=== PATIENT | female | born 1940 | race Caucasian/White ===

== ENCOUNTER 2017-10-18 09:54 | Emergency (ER) | payer MEDICARE, OTHER ==
[2017-10-18] MEDS ORDERED: Aspirin 81 MG Tab.Chew PO ONE (10:02)
--- NOTE | 2017-10-18 10:17 | EDM.PDOC ---
ED HPI GENERAL MEDICAL PROBLEM - General Chief Complaint: Chest Pain Stated Complaint: COUGH AND HEAVY CHEST Time Seen by Provider: 10/18/17 09:54 Source of Information: Reports: Patient History Limitations: Reports: No Limitations - History of Present Illness INITIAL COMMENTS - FREE TEXT/NARRATIVE: 77 years old w f with a H/O hypercholesterolemia, HTN, Typ 2 DM, came to the ed due to chest pressure rated as a 4/10. Pt can walk 4 blocks without having sob, however, the chest pressure is always present for 2 days now. No N/V/D or any other constitutional symptoms. 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 BP 178/86 RR 18 Pulse ox 97% on RA Temp 36.6. Pulse 50. Onset Date: 10/16/17 Onset Time: 07:00 Duration: Day(s): Location: Reports: Chest Quality: Reports: Ache, Dull, Pressure Severity: Moderate Improves with: Reports: Rest Worsens with: Reports: Movement Context: Reports: Other (chest pressure for 2 days 4/10) Chest Pain Score (Numeric/FACES): 4 - Related Data Allergies Allergy/AdvReac Type Severity Reaction Status Date / Time No Known Allergies Allergy Verified 10/18/17 10:12 Home Meds: Home Meds Furosemide 20 mg PO DAILY 06/16/15 [History] Gabapentin 300 mg PO TID 06/16/15 [History] Levothyroxine 75 mcg PO ACBREAKFAST 06/16/15 [History] Simvastatin [Zocor] 10 mg PO BEDTIME 06/16/15 [History] Propylene Glycol/Peg 400 [Systane Liquid Gel Eye Drops] 1 drop EYEBOTH BID 08/10 [History] Amitriptyline [Elavil] 10 mg PO BID 10/18/17 [History] Atenolol 25 mg PO BID 10/18/17 [History] Losartan [Cozaar] 50 mg PO BID 10/18/17 [History] Past Medical History HEENT History: Reports: Cataract, Impaired Vision Cardiovascular History: Reports: High Cholesterol, Hypertension Gastrointestinal History: Reports: Chronic Constipation, Gastritis, GERD, Hemorrhoids, Other (See Below) Other Gastrointestinal History: 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: Reports: Endometriosis, Musculoskeletal History: Reports: Arthritis Neurological History: Reports: Migraines Psychiatric History: Reports: Anxiety, Depression Endocrine/Metabolic History: Reports: Diabetes, Type II, Hypothyroidism Immunologic History: Reports: Other (See Below) Other Immunologic History: SHINGLES Dermatologic History: Reports: Other (See Below) Other Dermatologic History: spot on leg that she is concerned about because it doesn't heel - Infectious Disease History Infectious Disease History: Reports: Chicken Pox, Shingles - Past Surgical History HEENT Surgical History: Reports: Cataract Surgery Social & Family History - Family History HEENT: Reports: Cataract, Glaucoma, Impaired Vision Cardiac: Reports: Bypass, CAD, Heart Failure, High Cholesterol, Hypertension, RI , Pacemaker Respiratory: Reports: None GI: Reports: Chronic Constipation, GERD OBGYN: Reports: None Musculoskeletal: Reports: Arthritis, Gout Neurological: Reports: CVA, Migraines Psychiatric: Reports: Anxiety Endocrine/Metabolic: Reports: Diabetes, type II Oncologic: Reports: Colon ED ROS GENERAL - Review of Systems Review Of Systems: See Below Constitutional: Reports: No Symptoms HEENT: Reports: No Symptoms Respiratory: Reports: Shortness of Breath Cardiovascular: Reports: Chest Pain Endocrine: Reports: No Symptoms GI/Abdominal: Reports: No Symptoms : Reports: No Symptoms Musculoskeletal: Reports: No Symptoms Skin: Reports: No Symptoms Neurological: Reports: No Symptoms Psychiatric: Reports: No Symptoms Hematologic/Lymphatic: Reports: No Symptoms Immunologic: Reports: No Symptoms ED EXAM, GENERAL - Physical Exam Exam: See Below Exam Limited By: No Limitations General Appearance: Alert, WD/WN, Mild Distress, Moderate Distress Eye Exam: Bilateral Eye: Normal Inspection Ears: Normal External Exam, Normal Canal Ear Exam: Bilateral Ear: Auricle Normal Nose: Normal Inspection, Normal Mucosa, No Blood Throat/Mouth: Normal Inspection, Normal Lips, Normal Gums, Normal Voice, No Airway Compromise Head: Atraumatic, Normocephalic Neck: Normal Inspection, Supple, Non-Tender, Full Range of Motion Respiratory/Chest: No Respiratory Distress, Decreased Breath Sounds Cardiovascular: Normal Peripheral Pulses, No Edema, No Gallop, No JVD, No Murmur , Bradycardia GI/Abdominal: Normal Bowel Sounds, Soft, Non-Tender, No Organomegaly, No Distention, No Abnormal Bruit, No Mass, Pelvis Stable (Female) Exam: Deferred Rectal (Female) Exam: Deferred Back Exam: Normal Inspection, Full Range of Motion Extremities: Normal Inspection, Normal Range of Motion, Non-Tender, No Pedal Edema, Normal Capillary Refill Neurological: Alert, Oriented, CN II-XII Intact, Normal Cognition, Normal Gait, No Motor/Sensory Deficits Psychiatric: Normal Affect, Normal Mood Skin Exam: Warm, Dry, Intact, Normal Color, No Rash Lymphatic: No Adenopathy EKG INTERPRETATION EKG Date: 10/18/17 Time: 10:05 Rhythm: NSR Rate (Beats/Min): 51 [place]le: Normal P-Wave: Present QRS: Normal ST-T: Normal QT: Normal Comparison: NA - No Prior EKG Course - Vital Signs Text/Narrative:: 77 years old w f with a H/O hypercholesterolemia, HTN, Typ 2 DM, came to the ed due to chest pressure rated as a 4/10. Pt can walk 4 blocks without having sob, however, the chest pressure is always present for 2 days now. No N/V/D or any other constitutional symptoms. 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 BP 178/86 RR 18 Pulse ox 97% on RA Temp 36.6. Pulse 50. Pt plans to go on a trip to [place]. PE: WNWD W F came to the ED with Chest pressure 4/10, has Cardiac risk factors. Imaging: CXR 2 views: NAD, official report is pending. Labs: CBC Nl. Linn 14.6 % (10.9) D Dimer <0.19 INR 1.01 GFR 54 Na/K nl Troponin 0.017 Na 137 K 3.8 Impression: Atypical chest pain Tx: ASA, NTG past 1/2 inch. Clonidine 0.1 Reexam: CP subsided to 0/10 (4/10), BP 130/56 Pulse 42 on D/C. Pt refused admission, "absolutely not", was ambulating fine on D/C Plan: D/C with instructions Last Recorded V/S: Last Vital Signs Temp 36.6 C 10/18/17 09:54 Pulse 50 L 10/18/17 09:54 Resp 18 10/18/17 09:54 BP 174/71 H 10/18/17 11:20 Pulse Ox 96 10/18/17 09:54 - Orders/Labs/Meds Orders: Active Orders 24 hr Category Date Time Status CXR [Chest 2V] [CR] Stat Exams 10/18/17 10:13 Taken EKG 12 Lead [EK] Routine Ther 10/18/17 10:02 Ordered Labs: Laboratory Tests 10/18/17 10/18/17 10/18/17 Range/Units 10:30 10:30 10:30 WBC 5.4 (4.5-12.0) X10-3/uL RBC 4.92 (3.23-5.20) x10(6)uL Hgb 14.3 (11.5-15.5) g/dL Hct 43.5 (30.0-51.3) % MCV 88.3 (80-96) fL MCH 29.1 (27.7-33.6) pg MCHC 32.9 (32.2-35.4) g/dL RDW 11.8 (11.5-15.5) % Plt Count 262 (125-369) X10(3)uL MPV 7.1 L (7.4-10.4) fL Neut % (Auto) 56.0 (46-82) % Lymph % (Auto) 19.1 (13-37) % Linn % (Auto) 14.9 H (4-12) % Eos % (Auto) 9 H (1.0-5.0) % Baso % (Auto) 1 (0-2) % Neut # (Auto) 3.0 (1.6-8.3) # Lymph # (Auto) 1.0 (0.6-5.0) # Linn # (Auto) 0.8 (0.0-1.3) # Eos # (Auto) 0.5 (0.0-0.8) # Baso # (Auto) 0.1 (0.0-0.2) # PT 9.8 (8.7-11.1) INR 1.01 (0.89-1.13) D-Dimer, Quantitative < 0.19 (0.0-0.59) mg/LFEU Sodium (135-145) mmol/L Potassium (3.5-5.3) mmol/L Chloride (100-110) mmol/L Carbon Dioxide (21-32) mmol/L BUN (7-18) mg/dL Creatinine (0.55-1.02) mg/dL Est Cr Clr Drug Dosing mL/min Estimated GFR (MDRD) (>60) BUN/Creatinine Ratio (9-20) Glucose (80-116) mg/dL Calcium (8.6-10.2) mg/dL Creatine Kinase (60-160) IU/L Troponin I (<0.017-0.056) ng/mL 10/18/17 10/18/17 Range/Units 10:30 10:30 WBC (4.5-12.0) X10-3/uL RBC (3.23-5.20) x10(6)uL Hgb (11.5-15.5) g/dL Hct (30.0-51.3) % MCV (80-96) fL MCH (27.7-33.6) pg MCHC (32.2-35.4) g/dL RDW (11.5-15.5) % Plt Count (125-369) X10(3)uL MPV (7.4-10.4) fL Neut % (Auto) (46-82) % Lymph % (Auto) (13-37) % Linn % (Auto) (4-12) % Eos % (Auto) (1.0-5.0) % Baso % (Auto) (0-2) % Neut # (Auto) (1.6-8.3) # Lymph # (Auto) (0.6-5.0) # Linn # (Auto) (0.0-1.3) # Eos # (Auto) (0.0-0.8) # Baso # (Auto) (0.0-0.2) # PT (8.7-11.1) INR (0.89-1.13) D-Dimer, Quantitative (0.0-0.59) mg/LFEU Sodium 137 (135-145) mmol/L Potassium 3.9 (3.5-5.3) mmol/L Chloride 102 (100-110) mmol/L Carbon Dioxide 30 (21-32) mmol/L BUN 18 (7-18) mg/dL Creatinine 1.0 (0.55-1.02) mg/dL Est Cr Clr Drug Dosing 41.54 mL/min Estimated GFR (MDRD) 54 L (>60) BUN/Creatinine Ratio 18.0 (9-20) Glucose 87 (80-116) mg/dL Calcium 9.4 (8.6-10.2) mg/dL Creatine Kinase 55 L (60-160) IU/L Troponin I < 0.017 L (<0.017-0.056) ng/mL Meds: Medications Discontinued Medications Generic Name Dose Route Start Last Admin Trade Name Jose PRN Reason Stop Dose Admin Aspirin 324 mg 10/18/17 10:02 10/18/17 10:10 Aspirin PO 10/18/17 10:03 324 mg ONETIME ONE Administration Clonidine HCl 0.1 mg 10/18/17 11:13 10/18/17 11:20 Catapres PO 10/18/17 11:14 0.1 mg ONETIME ONE Administration Nitroglycerin 1 gm 10/18/17 10:49 10/18/17 10:53 Nitro-Bid 2% TOP 10/18/17 10:50 1 gm ONETIME STA Administration Departure - Departure Time of Disposition: 12:25 Disposition: Home, Self-Care 01 Condition: Good Clinical Impression: Atypical chest pain, Hypertensive urgency Referrals: Doyle Huang MD [Primary Care Provider] - Forms: ED Department Discharge Additional Instructions: Please cont your medications, please F/U with your PMD to get your BP checked before you go on your trip to [place] this Friday. If it is up in 2 more occasions, your BP medication needs needs to be changed. Please come back to the ED if your symptoms get worse acutely. - My Orders Last 24 Hours: My Active Orders 10/18/17 10:02 EKG 12 Lead [EK] Routine 10/18/17 10:13 CXR [Chest 2V] [CR] Stat - Assessment/Plan Last 24 Hours: My Active Orders 10/18/17 10:02 EKG 12 Lead [EK] Routine 10/18/17 10:13 CXR [Chest 2V] [CR] Stat
[2017-10-18] MEDS ORDERED: Nitroglycerin 2% Oint 1 GM UD Packet TOP STA (10:49)
[2017-10-18] MEDS ORDERED: cloNIDine 0.1 MG Tab PO ONE (11:13)
[2017-10-18 12:46] VITALS: BP 130/56
--- NOTE | 2017-10-21 13:11 | CR ---
INDICATION: Chest pain, short of breath times two days. CHEST: PA and lateral views of the chest 10/18/2017 were compared with 2015 and 12/13/2012. Overlying EKG leads are noted. The heart appears to be at the upper limits of normal in size to slightly enlarged with minimal LVE. The aorta is tortuous with calcification in the arch. Bony structures appear to be grossly intact. A definite active infiltrate or effusion was not identified with markings appearing similar in the lower lung santiago to the previous study, likely due to mild pulmonary fibrosis. IMPRESSION: Fairly stable appearance of the chest, no acute process. MTDD
== END 2017-10-18 12:40 | disposition home or self-care (01) ==
LOC: FB.ED 09:54
DX: I16.0 Hypertensive urgency (principal); R07.89 Other chest pain; E78.00 Pure hypercholesterolemia, unspecified; I10 Essential (primary) hypertension; E11.9 Type 2 diabetes mellitus without complications; E03.9 Hypothyroidism, unspecified; Z79.899 Other long term (current) drug therapy
CPT/HCPCS: 36415; 71046; 80048; 82550; 84484; 85025; 85379; 85610; 93005; 99285; A9270-GY

== ENCOUNTER 2020-01-18 11:36 | Emergency (ER) | payer MEDICARE, OTHER ==
[2020-01-18] MEDS ORDERED: Sodium Chloride 0.9% 10 ML Syringe FLUSH PRN (12:01)
[2020-01-18] MEDS ORDERED: Diphtheria,Pertussis(Acell),Tetanus Vaccine 0.5 ML SDV IM ONE (12:43)
[2020-01-18] MEDS ORDERED: Acetaminophen 500 MG Tab PO ONE (12:43)
[2020-01-18] MEDS ORDERED: Sodium Chloride 0.9% 1,000 ML IV SCH (12:45)
--- NOTE | 2020-01-18 12:54 | EDM.PDOC ---
ED HPI GENERAL MEDICAL PROBLEM - General Stated Complaint: PT FELL,LACERATION TO HEAD Time Seen by Provider: 01/18/20 11:50 Source of Information: Reports: Patient History Limitations: Reports: No Limitations - History of Present Illness INITIAL COMMENTS - FREE TEXT/NARRATIVE: Patient presented to the ED because of head injury after a brief syncopal episode. Patient racalled that she was working all day and then she was standing on the garage visiting with a friend when all of a sudden she felt dizzy and passed out. She has a brief LOC approximately 350 seconds. She is AAO x3 with GCS of 15 upon her arrival in the ED. Head Pain Score (Numeric/FACES): 3 - Related Data Allergies Allergy/AdvReac Type Severity Reaction Status Date / Time No Known Allergies Allergy Verified 01/18/20 19:35 Home Meds: Home Meds Furosemide 20 mg PO DAILY 06/16/15 [History] Gabapentin 300 mg PO TID 06/16/15 [History] Levothyroxine 75 mcg PO ACBREAKFAST 06/16/15 [History] Simvastatin [Zocor] 10 mg PO BEDTIME 06/16/15 [History] Propylene Glycol/Peg 400 [Systane Liquid Gel Eye Drops] 1 drop EYEBOTH BID 08/11/15 [History] Amitriptyline [Elavil] 10 mg PO BID 10/18/17 [History] Losartan [Cozaar] 50 mg PO BID 10/18/17 [History] atenoloL [Atenolol] 25 mg PO BID 10/18/17 [History] Past Medical History HEENT History: Reports: Cataract, Impaired Vision Cardiovascular History: Reports: High Cholesterol, Hypertension Gastrointestinal History: Reports: Chronic Constipation, Gastritis, GERD, Hemorrhoids, Other (See Below) Other Gastrointestinal History: 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: Endometriosis, Musculoskeletal History: Reports: Arthritis Neurological History: Reports: Migraines Psychiatric History: Reports: Anxiety, Depression Endocrine/Metabolic History: Reports: Diabetes, Type II, Hypothyroidism Immunologic History: Reports: Other (See Below) Other Immunologic History: SHINGLES Dermatologic History: Reports: Other (See Below) Other Dermatologic History: spot on leg that she is concerned about because it doesn't heel - Infectious Disease History Infectious Disease History: Reports: Chicken Pox, Shingles - Past Surgical History HEENT Surgical History: Reports: Cataract Surgery Social & Family History - Family History HEENT: Reports: Cataract, Glaucoma, Impaired Vision Cardiac: Reports: Bypass, CAD, Heart Failure, High Cholesterol, Hypertension, RI, Pacemaker Respiratory: Reports: None GI: Reports: Chronic Constipation, GERD OBGYN: Reports: None Musculoskeletal: Reports: Arthritis, Gout Neurological: Reports: CVA, Migraines Psychiatric: Reports: Anxiety Endocrine/Metabolic: Reports: Diabetes, type II Oncologic: Reports: Colon - Caffeine Use Caffeine Use: Reports: None ED ROS GENERAL - Review of Systems Review Of Systems: See Below Constitutional: Reports: No Symptoms HEENT: Reports: No Symptoms Respiratory: Reports: No Symptoms Cardiovascular: Reports: No Symptoms Endocrine: Reports: No Symptoms GI/Abdominal: Reports: No Symptoms : Reports: No Symptoms Musculoskeletal: Reports: No Symptoms Skin: Reports: No Symptoms Neurological: Reports: Syncope Psychiatric: Reports: No Symptoms Hematologic/Lymphatic: Reports: No Symptoms ED EXAM, GENERAL - Physical Exam Exam: See Below Exam Limited By: No Limitations General Appearance: Alert, No Apparent Distress Eye Exam: Bilateral Eye: PERRL Ears: Normal External Exam, Normal Canal Nose: Normal Inspection, Normal Mucosa Throat/Mouth: Normal Inspection, Normal Lips, Normal Teeth Head: Other (small laceration left occipital area) Respiratory/Chest: No Respiratory Distress Cardiovascular: Normal Peripheral Pulses GI/Abdominal: Normal Bowel Sounds, Soft, Non-Tender Extremities: Normal Inspection, Normal Range of Motion, Non-Tender Neurological: Alert, Oriented, CN II-XII Intact Course - Vital Signs Text/Narrative:: Labs/EKG/Head CT was discussed with patient and verbalized full understanding NS 1 L bolus Tdap Last Recorded V/S: Last Vital Signs Temp 37.2 C 01/18/20 11:40 Pulse 71 01/18/20 11:40 Resp 18 01/18/20 11:40 BP 165/62 H 01/18/20 11:40 Pulse Ox 98 01/18/20 11:40 - Orders/Labs/Meds Orders: Active Orders 24 hr Category Date Time Status Saline Lock Insert [OM.PC] Routine Oth 01/18/20 12:01 Ordered EKG 12 Lead [EK] Routine Ther 01/18/20 12:01 Ordered Labs: Laboratory Tests 01/18/20 01/18/20 Range/Units 12:04 12:04 WBC 8.0 (4.5-12.0) X10-3/uL RBC 4.05 (3.23-5.20) x10(6)uL Hgb 12.1 (11.5-15.5) g/dL Hct 36.1 (30.0-51.3) % MCV 89.1 (80-96) fL MCH 29.9 (27.7-33.6) pg MCHC 33.5 (32.2-35.4) g/dL RDW 12.0 (11.5-15.5) % Plt Count 344 (125-369) X10(3)uL MPV 6.5 L (7.4-10.4) fL Neut % (Auto) 73.1 (46-82) % Lymph % (Auto) 15.2 (13-37) % [place] % (Auto) 10.3 (4-12) % Eos % (Auto) 1 (1.0-5.0) % Baso % (Auto) 1 (0-2) % Neut # (Auto) 5.9 (1.6-8.3) # Lymph # (Auto) 1.2 (0.6-5.0) # [place] # (Auto) 0.8 (0.0-1.3) # Eos # (Auto) 0.1 (0.0-0.8) # Baso # (Auto) 0.0 (0.0-0.2) # Sodium 133 L (135-145) mmol/L Potassium 4.0 (3.5-5.3) mmol/L Chloride 95 L D (100-110) mmol/L Carbon Dioxide 31 (21-32) mmol/L BUN 24 H (7-18) mg/dL Creatinine 1.2 H (0.55-1.02) mg/dL Est Cr Clr Drug Dosing TNP Estimated GFR (MDRD) 43 L (>60) BUN/Creatinine Ratio 20.0 (9-20) Glucose 120 H (80-116) mg/dL Calcium 9.5 (8.6-10.2) mg/dL Meds: Medications Discontinued Medications Generic Name Dose Route Start Last Admin Trade Name Freq PRN Reason Stop Dose Admin Acetaminophen 1,000 mg 01/18/20 12:43 01/18/20 13:00 Tylenol Extra Strength PO 08/25/20 12:44 1,000 mg ONETIME ONE Administration Diphtheria/Tetanus/Acell Pertussis 0.5 ml 01/18/20 12:43 01/18/20 12:58 Adacel IM 01/18/20 12:44 0.5 ml .ONCE ONE Administration Sodium Chloride 1,000 mls @ 999 mls/hr 01/18/20 12:45 01/18/20 12:15 Normal Saline IV 999 mls/hr ASDIRECTED FADI Administration Sodium Chloride 10 ml 01/18/20 12:01 Saline Flush FLUSH ASDIRECTED PRN Keep Vein Open Departure - Departure Time of Disposition: 13:50 Disposition: Home, Self-Care 01 Condition: Good Clinical Impression: Vasovagal syncope, Dehydration - Discharge Information Instructions: Dehydration, Adult, [id number], Syncope, [id number] Referrals: Doyle Huang MD [Primary Care Provider] - Forms: ED Department Discharge Additional Instructions: Please read discharge instructions on vasovagal syncope and dehydration Rest for the day Increase oral fluids, drink at least 2-3 liter a day follow up as needed Sepsis Event Note (ED) - Focused Exam Vital Signs: Vital Signs Temp Pulse Resp BP Pulse Ox 01/18/20 11:40 37.2 C 71 18 165/62 H 98 - My Orders Last 24 Hours: My Active Orders 01/18/20 12:01 Saline Lock Insert [OM.PC] Routine EKG 12 Lead [EK] Routine - Assessment/Plan Last 24 Hours: My Active Orders 01/18/20 12:01 Saline Lock Insert [OM.PC] Routine EKG 12 Lead [EK] Routine
--- NOTE | 2020-01-18 12:58 | CT ---
INDICATION: Head injury - hit right side in a fall, loss of consciousness. CT HEAD WITHOUT CONTRAST: Spiral 3.75 mm axial sections were obtained through the brain without contrast with axial, sagittal and coronal reconstructions 01/18/20 - no comparisons. Total exam DLP was 1270.76 mGy-cm. No shift of midline structures or ventricular abnormalities were identified. The orbits appear to be intact. There is a scalp hematoma in the right parietal area of small to moderate size. The paranasal sinuses were well aerated except for retention cysts in a right sphenoidal air cell. Mastoid air cells were well aerated. No cranial abnormality was seen. There is some minimal patchy decreased density in the white matter compatible with a minimal degree of microvascular disease. Calcifications are noted in the internal carotid arteries and very minimally in the vertebral arteries. No bleeding site or intracranial hematoma was identified. A tiny area of decreased density is noted in the right basal ganglia and in the posterior limb of the right internal capsule near the genu. These areas could represent very tiny lacunar infarcts and should be correlated clinically. IMPRESSION: 1. No acute intracranial abnormality. 2. Cerebrovascular disease with minimal microvascular disease. 3. Moderate size retention cyst in a right sphenoidal air cell. 4. Possible tiny lacunar infarcts in the right the basal ganglia and genu of the internal capsule. Report was called to Dr. Walker at approximately 1240 hours. [facility]
[2020-01-18 19:45] VITALS: BP 165/62; PULSE 71
== END 2020-01-18 13:35 | disposition home or self-care (01) ==
LOC: FB.ED 11:36
DX: S01.01XA Laceration without foreign body of scalp, initial encounter (principal); E86.0 Dehydration; Z23 Encounter for immunization; I10 Essential (primary) hypertension; E78.00 Pure hypercholesterolemia, unspecified; E11.9 Type 2 diabetes mellitus without complications; E03.9 Hypothyroidism, unspecified; Z79.899 Other long term (current) drug therapy; W19.XXXA Unspecified fall, initial encounter
CPT/HCPCS: 36415; 70450; 80048; 85025; 90471; 90715; 96360; 99285; A9270; J7030

== ENCOUNTER 2021-10-21 23:31 | Emergency (ER) | payer MEDICARE, OTHER ==
[2021-10-21] MEDS ORDERED: fentaNYL 25 MCG/HR Transdermal Patch TRDERM STA (23:53)
[2021-10-22 02:26] VITALS: BP 168/55; PULSE 56
== END 2021-10-22 00:05 | disposition home or self-care (01) ==
LOC: FB.ED 23:31
DX: M54.50 Low back pain, unspecified (principal); E78.00 Pure hypercholesterolemia, unspecified; I10 Essential (primary) hypertension; E03.9 Hypothyroidism, unspecified; E11.9 Type 2 diabetes mellitus without complications; Z79.899 Other long term (current) drug therapy
CPT/HCPCS: 99283; A9270-GY

== ENCOUNTER 2021-10-22 13:25 | Emergency (ER) | payer MEDICARE, OTHER ==
[2021-10-22] MEDS ORDERED: Ketorolac 30 MG/ML SDV IM ONE (13:44)
[2021-10-22] MEDS ORDERED: hydrOXYzine HCl 50 MG/ML SDV IM ONE (13:44)
[2021-10-22] MEDS ORDERED: Gabapentin 300 MG Cap ONE (14:32)
[2021-10-22] MEDS ORDERED: Gabapentin 300 MG Cap PO ONE ×2 (14:32→14:34)
[2021-10-22 14:40] VITALS: BP 172/61; PULSE 54
== END 2021-10-22 14:53 | disposition home or self-care (01) ==
LOC: FB.ED 13:25
DX: M54.6 Pain in thoracic spine (principal)
CPT/HCPCS: 36415; 80048; 81003; 84484; 85025; 96372; 99283; A9270-GY; J1885; J3410

== ENCOUNTER 2022-03-08 16:32 | Emergency (ER) | payer MEDICARE, OTHER ==
[2022-03-08] MEDS ORDERED: Acetaminophen/Codeine 300-30 MG Tab PO ONE (17:02)
[2022-03-08] MEDS ORDERED: Ketorolac 30 MG/ML SDV IM ONE (17:03)
[2022-03-08 18:58] VITALS: BP 180/72; PULSE 63
== END 2022-03-08 18:50 | disposition home or self-care (01) ==
LOC: FB.ED 16:32
DX: M50.90 Cervical disc disorder, unspecified, unspecified cervical region (principal); M25.511 Pain in right shoulder; E78.00 Pure hypercholesterolemia, unspecified; I10 Essential (primary) hypertension; E11.9 Type 2 diabetes mellitus without complications; Z88.5 Allergy status to narcotic agent; Z79.899 Other long term (current) drug therapy; Z79.01 Long term (current) use of anticoagulants; Z90.49 Acquired absence of other specified parts of digestive tract; Z90.710 Acquired absence of both cervix and uterus
CPT/HCPCS: 72040; 73030; 93005; 96372; 99283; A9270; J1885